=== PATIENT | male | born 1965 | race Caucasian/White ===

== ENCOUNTER → 2023-04-12 08:19 | Outpatient (REF) | payer MEDICARE, SELFPAY ==
[2023-04-12 10:10] LABS: % Basophils 0.5 % (0-2); % Eosinophils 1.6 % (0-6); % Immature Granulocytes 0.5 % (0-0.5); % Lymphocytes 25.8 % (20.5-51.1); % Monocytes 9.1 % (1.7-9.3); % Neutrophils 62.5 % (42.2-75.2); Absolute Eosinophils 0.1 10^3/uL (0-0.7); Absolute Lymphocytes 2.3 10^3/uL (1.2-3.4); Absolute Monocytes 0.8 10^3/uL (0.1-0.6); Absolute Neutrophils 5.5 10^3/uL (1.4-6.5); Hemoglobin 14.3 g/dL (13.0-18.0); Mean Corpuscular Hgb 29.7 pg (27.0-31.0); Mean Corpuscular Volume 87.1 fL (80.0-94.0); Mean Platelet Volume 9.6 fL (7.4-10.4); Nucleated Red Blood Cells % 0 % (-); Platelet Count 285 10^3/uL (130-400); Red Blood Cell Count 4.82 10^6/uL (4.70-6.10); Red Cell Dist. Width 12.6 % (11.5-14.5); White Blood Cell Count 8.8 10^3/uL (4.8-10.8)
[2023-04-12 10:48] LABS: ALT (SGPT) 36 U/L (0-50); AST (SGOT) 38 U/L (17-59); Alkaline Phosphatase 66 U/L (38-126); Blood Urea Nitrogen 8 mg/dl (9-20); Carbon Dioxide 27 mmol/L (22-30); Chloride 102 mmol/L (98-107); Glucose 165 mg/dl (70-99); HDL Cholesterol 30 mg/dl; LDL Cholesterol, Calculated 138 mg/dl; Potassium 4.8 mmol/L (3.5-5.1); Sodium 138 mmol/L (135-145); Total Bilirubin 0.5 mg/dl (0.2-1.3); Total Cholesterol 215 mg/dl (50-199); Total Protein 6.9 g/dl (6.3-8.2); Triglyceride 238 mg/dl (10-149); Very Low Density Lipoprotein 47 mg/dl (0-30); eGFR > 60.00
[2023-04-12 11:28] LABS: TSH 3.19 uIU/ml (0.47-4.68)
== END ==
LOC: HWLAB 08:19
PROVIDERS: ATTENDING PHYSICIAN Family Medicine
DX: E78.00 Pure hypercholesterolemia, unspecified (principal); E11.9 Type 2 diabetes mellitus without complications
CPT/HCPCS: 36415; 80053; 80061; 83036; 84443; 85025

== ENCOUNTER → 2023-10-19 07:43 | Outpatient (REF) | payer MEDICARE, SELFPAY ==
[2023-10-19 10:53] LABS: Glycohemoglobin (HgbA1c) 6.4 % (4.0-5.6)
== END ==
LOC: HWLAB 07:43
PROVIDERS: ATTENDING PHYSICIAN Family Medicine
DX: E11.9 Type 2 diabetes mellitus without complications (principal)
CPT/HCPCS: 36415; 83036

== ENCOUNTER → 2023-10-26 07:09 | Outpatient (REF) | payer MEDICARE, SELFPAY | LOC: HWRAD 07:09 | PROVIDERS: ATTENDING PHYSICIAN Family Medicine | DX: R91.8 Other nonspecific abnormal finding of lung field (principal) | CPT/HCPCS: 71250 ==